=== PATIENT | male | born 1950 | race Caucasian/White ===

== ENCOUNTER 2022-03-27 19:11 | Inpatient (IN) | payer OTHER ==
[2022-03-27 19:53] LABS: #Basophils 0.1 thou/uL (0.0-0.2); #Eosinphils 0.1 thou/uL (0.0-0.7); #Lymphocytes 0.9 thou/uL (1.20-3.40); #Monocytes 0.5 thou/uL (0.11-0.59); #Neutrophils 4.1 thou/uL (1.40-6.50); %Basophils 1.5 % (0.0-1.0); %Eosinophils 1.8 % (0.0-10.0); %Lymphocytes 15.5 % (21.0-51.0); %Neutrophils 73.2 % (42.0-75.0); Hemoglobin 10.6 g/dL (14.0-18.0); Mean Corpuscular HGB CONC 30.1 g/dL (32.0-36.0); Mean Corpuscular Hemoglobin 27.2 pg (27.0-31.0); Mean Corpuscular Volume 90.5 fL (78.0-98.0); Mean Platelet Volume 6.9 fL (7.4-10.4); Platelet Count 277 thou/uL (130-400); RBC Distribution Width 13.3 % (11.5-14.5); Red Blood Cell (RBC) Count 3.88 mill/uL (4.70-6.10); White Blood Cell (WBC) Count 5.6 thou/uL (4.8-10.8)
[2022-03-27 20:25] LABS: Acetaminophen Less than 10.0 mcg/mL (10.0-30.0); Alcohol 291 mg/dL (Less than 10); Salicylate Less than 8.0 mg/dL (15.0-30.0)
[2022-03-27 20:30] LABS: ALT (SGPT) 55 U/L (8-55); AST (SGOT) 77 U/L (5-34); Albumin 2.7 g/dL (3.4-4.8); Alkaline Phosphatase 75 U/L (40-110); Anion Gap 14 mmol/L (10-20); BUN (Urea Nitrogen) 15 mg/dL (8.4-25.7); Bilirubin, Total Less than 0.2 mg/dL (0.2-1.2); Calc. Creatinine Clearance 0 mL/min (70-130); Calcium 8.1 mg/dL (7.8-10.44); Carbon Dioxide 23 mmol/L (23-31); Chloride 107 mmol/L (98-107); Estimated GFR 89; Globulin 2.8 g/dL (2.4-3.5); Glucose 110 mg/dL (80-115); Potassium 4.8 mmol/L (3.5-5.1); Protein, Total 5.5 g/dL (5.8-8.1); Sodium 139 mmol/L (136-145)
[2022-03-27] MEDS ORDERED: DOPamine 400 MG/D5W 250 ML 0 ML ONE (22:39)
[2022-03-27] MEDS ORDERED: NOREPINEPHRINE 8 MG/250 ML-D5W 250 ML ONE (22:40)
[2022-03-27] MEDS ORDERED: Multivitamins, Adult 10 ML, Thiamine HCl 100 MG, Folic Acid 1 MG in Dextrose 5 %-0.45 %... IV SCH (23:30)
[2022-03-28] MEDS ORDERED: Lorazepam 1 MG TAB PO PRN
[2022-03-28] MEDS ORDERED: Ondansetron PF 4 MG/2 ML Vial IVP PRN (01:57)
[2022-03-28] MEDS ORDERED: Acetaminophen 325 MG TAB PO PRN (01:57)
[2022-03-28] MEDS ORDERED: NOREPINEPHRINE 8 MG/250 ML-D5W 250 ML IVPB SCH (02:45)
[2022-03-28] MEDS: Sodium Chloride 0.9% 1,000 ML IV SCH ×2 (03:06→17:38)
[2022-03-28 03:19] LABS: SARS-CoV-2 NAA Rapid Test Not Detected (NotDetected)
[2022-03-28 04:52] LABS: ALT (SGPT) 65 U/L (8-55); AST (SGOT) 74 U/L (5-34); Albumin 3.1 g/dL (3.4-4.8); Alkaline Phosphatase 85 U/L (40-110); Anion Gap 16 mmol/L (10-20); BUN (Urea Nitrogen) 13 mg/dL (8.4-25.7); Bilirubin, Total 0.2 mg/dL (0.2-1.2); Calc. Creatinine Clearance 97 mL/min (70-130); Calcium 8.2 mg/dL (7.8-10.44); Carbon Dioxide 21 mmol/L (23-31); Chloride 106 mmol/L (98-107); Estimated GFR 95; Glucose 116 mg/dL (80-115); Potassium 4.6 mmol/L (3.5-5.1); Protein, Total 6.1 g/dL (5.8-8.1); Sodium 138 mmol/L (136-145)
[2022-03-28 05:02] LABS: #Lymphocytes 0.7 thou/uL (1.20-3.40); #Monocytes 0.7 thou/uL (0.11-0.59); #Neutrophils 9.8 thou/uL (1.40-6.50); %Basophils 0.3 % (0.0-1.0); %Eosinophils 0.2 % (0.0-10.0); %Lymphocytes 6.5 % (21.0-51.0); %Monocytes 6.1 % (0.0-10.0); Hemoglobin 11.2 g/dL (14.0-18.0); Mean Corpuscular HGB CONC 30.1 g/dL (32.0-36.0); Mean Corpuscular Hemoglobin 27.7 pg (27.0-31.0); Mean Platelet Volume 7.3 fL (7.4-10.4); Platelet Count 317 thou/uL (130-400); RBC Distribution Width 13.2 % (11.5-14.5); Red Blood Cell (RBC) Count 4.06 mill/uL (4.70-6.10); White Blood Cell (WBC) Count 11.3 thou/uL (4.8-10.8)
[2022-03-28] MEDS ORDERED: Phentolamine Mesylate 5 MG VIAL SC SCH (07:00)
[2022-03-28] MEDS: Enoxaparin Sodium 40 MG/0.4 ML SYRINGE SC SCH (07:37)
[2022-03-28] MEDS: Multivitamin W/ Minerals 1 TAB PO SCH (07:38)
[2022-03-28] MEDS: Thiamine 100 MG TAB PO SCH (07:38)
[2022-03-28] MEDS: Famotidine 20 MG TAB PO SCH ×2 (07:38→19:49)
[2022-03-28] MEDS: Folic Acid 1 MG TAB PO SCH ×3 (07:38→09:24)
[2022-03-28] MEDS: Thiamine HCl 200 MG/2 ML VIAL SLOW IVP SCH (07:40)
[2022-03-28] MEDS ORDERED: Lorazepam 2 MG/ML VIAL IM PRN (08:00)
[2022-03-28] MEDS ORDERED: Ondansetron ODT 4 MG TAB PO PRN (08:00)
[2022-03-28] MEDS ORDERED: Electrolyte Replacement Protocol 1 EACH FS PRN (08:00)
[2022-03-28] MEDS: Lorazepam 1 MG TAB PO SCH ×4 (08:40→23:34)
[2022-03-28] MEDS: Multivit, Therapeutic 1 TAB PO SCH (08:40)
[2022-03-28] MEDS: Midazolam HCl 2 mg/2 ml Vial IVP PRN ×2 (19:12→23:41)
[2022-03-29] MEDS: Midazolam HCl 2 mg/2 ml Vial IVP PRN ×3 (04:35→21:03)
[2022-03-29] MEDS: Lorazepam 1 MG TAB PO SCH ×2 (05:43→10:47)
[2022-03-29] MEDS ORDERED: Dexmedetomidine In 0.9 % NaCl 100 ML IVPB SCH (06:00)
[2022-03-29] MEDS: Sodium Chloride 0.9% 1,000 ML IV SCH ×2 (06:29→20:55)
[2022-03-29 06:55] LABS: #Eosinphils 0.1 thou/uL (0.0-0.7); #Lymphocytes 0.9 thou/uL (1.20-3.40); #Monocytes 1.1 thou/uL (0.11-0.59); #Neutrophils 9.7 thou/uL (1.40-6.50); %Basophils 0.2 % (0.0-1.0); %Eosinophils 0.5 % (0.0-10.0); %Lymphocytes 7.7 % (21.0-51.0); %Monocytes 9.3 % (0.0-10.0); %Neutrophils 82.4 % (42.0-75.0); Hemoglobin 11.3 g/dL (14.0-18.0); Mean Corpuscular HGB CONC 31.5 g/dL (32.0-36.0); Mean Corpuscular Hemoglobin 28.5 pg (27.0-31.0); Mean Corpuscular Volume 90.3 fL (78.0-98.0); Mean Platelet Volume 7.4 fL (7.4-10.4); Platelet Count 272 thou/uL (130-400); RBC Distribution Width 13.4 % (11.5-14.5); Red Blood Cell (RBC) Count 3.97 mill/uL (4.70-6.10); White Blood Cell (WBC) Count 11.7 thou/uL (4.8-10.8)
[2022-03-29 07:19] LABS: ALT (SGPT) 56 U/L (8-55); AST (SGOT) 53 U/L (5-34); Albumin 3.6 g/dL (3.4-4.8); Alkaline Phosphatase 96 U/L (40-110); Anion Gap 15 mmol/L (10-20); BUN (Urea Nitrogen) 13 mg/dL (8.4-25.7); Bilirubin, Total 0.5 mg/dL (0.2-1.2); Calc. Creatinine Clearance 95 mL/min (70-130); Calcium 8.2 mg/dL (7.8-10.44); Carbon Dioxide 22 mmol/L (23-31); Chloride 102 mmol/L (98-107); Estimated GFR 95; Globulin 3.2 g/dL (2.4-3.5); Glucose 90 mg/dL (80-115); Magnesium 1.6 mg/dL (1.6-2.6); Potassium 3.8 mmol/L (3.5-5.1); Protein, Total 6.8 g/dL (5.8-8.1); Sodium 135 mmol/L (136-145)
[2022-03-29] MEDS ORDERED: Lorazepam 1 MG TAB PO PRN (08:00)
[2022-03-29] MEDS: Folic Acid 1 MG TAB PO SCH (09:52)
[2022-03-29] MEDS: Multivitamin W/ Minerals 1 TAB PO SCH (09:52)
[2022-03-29] MEDS: Thiamine 100 MG TAB PO SCH (09:53)
[2022-03-29] MEDS: Enoxaparin Sodium 40 MG/0.4 ML SYRINGE SC SCH (09:53)
[2022-03-29] MEDS: Multivit, Therapeutic 1 TAB PO SCH (09:53)
[2022-03-29] MEDS: Famotidine 20 MG TAB PO SCH ×2 (09:53→21:17)
[2022-03-29] MEDS: Thiamine HCl 200 MG/2 ML VIAL SLOW IVP SCH (10:47)
[2022-03-29] MEDS ORDERED: BEER 1 CAN PO SCH (13:00)
[2022-03-29] MEDS ORDERED: Magnesium 2 GM/50 ML(in water) 2 GM in Premix Bag 1 BAG IVPB SCH (14:15)
[2022-03-29] MEDS: Lorazepam 2 MG/ML VIAL SLOW IVP PRN ×2 (14:57→21:57)
[2022-03-29] MEDS ORDERED: chlordiazePOXIDE HCl 25 MG CAP PO SCH (15:00)
[2022-03-29] MEDS: chlordiazePOXIDE HCl 25 MG CAP PO SCH ×2 (17:46→21:17)
[2022-03-29] MEDS: BEER 1 CAN PO SCH (17:47)
[2022-03-29] MEDS: Metoprolol Tartrate 5 MG/5 ML VIAL IVP SCH (20:55)
[2022-03-30] MEDS: Midazolam HCl 2 mg/2 ml Vial IVP PRN ×4 (01:59→18:58)
[2022-03-30] MEDS: Lorazepam 2 MG/ML VIAL SLOW IVP PRN ×4 (03:23→22:13)
[2022-03-30 04:07] LABS: ALT (SGPT) 60 U/L (8-55); AST (SGOT) 73 U/L (5-34); Albumin 3.2 g/dL (3.4-4.8); Alkaline Phosphatase 89 U/L (40-110); Anion Gap 14 mmol/L (10-20); BUN (Urea Nitrogen) 16 mg/dL (8.4-25.7); Bilirubin, Total 0.6 mg/dL (0.2-1.2); Calc. Creatinine Clearance 95 mL/min (70-130); Calcium 8.1 mg/dL (7.8-10.44); Carbon Dioxide 22 mmol/L (23-31); Chloride 105 mmol/L (98-107); Estimated GFR 95; Globulin 3.2 g/dL (2.4-3.5); Glucose 64 mg/dL (80-115); Magnesium 2.3 mg/dL (1.6-2.6); Potassium 5.1 mmol/L (3.5-5.1); Protein, Total 6.4 g/dL (5.8-8.1); Sodium 136 mmol/L (136-145)
[2022-03-30] MEDS ORDERED: Lorazepam 0.5 MG TAB PO SCH (06:00)
[2022-03-30] MEDS ORDERED: Lorazepam 1 MG TAB PO PRN (08:00)
[2022-03-30] MEDS: chlordiazePOXIDE HCl 25 MG CAP PO SCH ×3 (09:57→20:32)
[2022-03-30] MEDS: Famotidine 20 MG TAB PO SCH ×2 (09:57→20:32)
[2022-03-30] MEDS: BEER 1 CAN PO SCH ×3 (09:57→17:29)
[2022-03-30] MEDS: Multivit, Therapeutic 1 TAB PO SCH (09:58)
[2022-03-30] MEDS: Folic Acid 1 MG TAB PO SCH (09:58)
[2022-03-30] MEDS: Sodium Chloride 0.9% 1,000 ML IV SCH ×2 (10:06→21:34)
[2022-03-30] MEDS: Metoprolol Tartrate 5 MG/5 ML VIAL IVP SCH ×2 (10:07→20:32)
[2022-03-30] MEDS: Enoxaparin Sodium 40 MG/0.4 ML SYRINGE SC SCH (10:09)
[2022-03-30] MEDS: Thiamine HCl 200 MG/2 ML VIAL SLOW IVP SCH (10:19)
[2022-03-30] MEDS ORDERED: Thiamine HCl 200 MG/2 ML VIAL SLOW IVP SCH (11:00)
[2022-03-31 04:25] LABS: #Eosinphils 0.2 thou/uL (0.0-0.7); #Lymphocytes 0.8 thou/uL (1.20-3.40); #Monocytes 1.1 thou/uL (0.11-0.59); %Basophils 0.4 % (0.0-1.0); %Eosinophils 2.6 % (0.0-10.0); %Lymphocytes 8.9 % (21.0-51.0); %Monocytes 11.7 % (0.0-10.0); %Neutrophils 76.5 % (42.0-75.0); Hemoglobin 10.9 g/dL (14.0-18.0); Mean Corpuscular HGB CONC 30.2 g/dL (32.0-36.0); Mean Corpuscular Hemoglobin 27.9 pg (27.0-31.0); Mean Corpuscular Volume 92.2 fL (78.0-98.0); Mean Platelet Volume 7.7 fL (7.4-10.4); Platelet Count 199 thou/uL (130-400); RBC Distribution Width 13.8 % (11.5-14.5); Red Blood Cell (RBC) Count 3.91 mill/uL (4.70-6.10); White Blood Cell (WBC) Count 9.1 thou/uL (4.8-10.8)
[2022-03-31 04:53] LABS: ALT (SGPT) 50 U/L (8-55); AST (SGOT) 49 U/L (5-34); Albumin 2.9 g/dL (3.4-4.8); Alkaline Phosphatase 76 U/L (40-110); Anion Gap 13 mmol/L (10-20); BUN (Urea Nitrogen) 19 mg/dL (8.4-25.7); Bilirubin, Total 0.4 mg/dL (0.2-1.2); Calc. Creatinine Clearance 104 mL/min (70-130); Calcium 7.6 mg/dL (7.8-10.44); Carbon Dioxide 22 mmol/L (23-31); Chloride 107 mmol/L (98-107); Estimated GFR 97; Globulin 2.8 g/dL (2.4-3.5); Glucose 77 mg/dL (80-115); Magnesium 2.3 mg/dL (1.6-2.6); Potassium 4.1 mmol/L (3.5-5.1); Protein, Total 5.7 g/dL (5.8-8.1); Sodium 138 mmol/L (136-145)
[2022-03-31] MEDS ORDERED: Lorazepam 0.5 MG TAB PO PRN (06:00)
[2022-03-31] MEDS: BEER 1 CAN PO SCH ×3 (09:48→15:59)
[2022-03-31] MEDS: chlordiazePOXIDE HCl 25 MG CAP PO SCH ×3 (09:49→20:30)
[2022-03-31] MEDS: Enoxaparin Sodium 40 MG/0.4 ML SYRINGE SC SCH (09:49)
[2022-03-31] MEDS: Multivit, Therapeutic 1 TAB PO SCH (09:49)
[2022-03-31] MEDS: Metoprolol Tartrate 5 MG/5 ML VIAL IVP SCH (09:49)
[2022-03-31] MEDS: Famotidine 20 MG TAB PO SCH ×2 (09:49→20:30)
[2022-03-31] MEDS: Folic Acid 1 MG TAB PO SCH (09:49)
[2022-03-31] MEDS: Thiamine 100 MG TAB PO SCH (09:49)
[2022-03-31] MEDS: Sodium Chloride 0.9% 1,000 ML IV SCH (12:24)
[2022-03-31] MEDS: Amlodipine 10 MG TAB PO SCH (15:57)
[2022-03-31] MEDS: Metoprolol Tartrate 25 MG TAB PO SCH (20:30)
[2022-04-01 03:59] LABS: #Eosinphils 0.1 thou/uL (0.0-0.7); #Lymphocytes 0.6 thou/uL (1.20-3.40); #Monocytes 0.9 thou/uL (0.11-0.59); #Neutrophils 6.4 thou/uL (1.40-6.50); %Basophils 0.2 % (0.0-1.0); %Eosinophils 1.1 % (0.0-10.0); %Lymphocytes 7.2 % (21.0-51.0); %Monocytes 10.9 % (0.0-10.0); %Neutrophils 80.6 % (42.0-75.0); Hemoglobin 11.2 g/dL (14.0-18.0); Mean Corpuscular HGB CONC 30.1 g/dL (32.0-36.0); Mean Corpuscular Hemoglobin 27.7 pg (27.0-31.0); Mean Corpuscular Volume 91.8 fL (78.0-98.0); Mean Platelet Volume 7.2 fL (7.4-10.4); Platelet Count 212 thou/uL (130-400); RBC Distribution Width 13.7 % (11.5-14.5); Red Blood Cell (RBC) Count 4.04 mill/uL (4.70-6.10)
[2022-04-01 04:25] LABS: ALT (SGPT) 45 U/L (8-55); AST (SGOT) 40 U/L (5-34); Alkaline Phosphatase 74 U/L (40-110); Anion Gap 14 mmol/L (10-20); BUN (Urea Nitrogen) 10 mg/dL (8.4-25.7); Bilirubin, Total 0.4 mg/dL (0.2-1.2); Calc. Creatinine Clearance 119 mL/min (70-130); Calcium 8.1 mg/dL (7.8-10.44); Carbon Dioxide 24 mmol/L (23-31); Chloride 105 mmol/L (98-107); Estimated GFR 101; Globulin 2.9 g/dL (2.4-3.5); Glucose 78 mg/dL (80-115); Magnesium 2.1 mg/dL (1.6-2.6); Potassium 3.6 mmol/L (3.5-5.1); Protein, Total 5.9 g/dL (5.8-8.1); Sodium 139 mmol/L (136-145)
[2022-04-01 05:07] VITALS: BMI 27.7
[2022-04-01] MEDS: BEER 1 CAN PO SCH ×4 (08:01→22:00)
[2022-04-01] MEDS: Thiamine 100 MG TAB PO SCH (08:02)
[2022-04-01] MEDS: Amlodipine 10 MG TAB PO SCH (08:02)
[2022-04-01] MEDS: Metoprolol Tartrate 25 MG TAB PO SCH ×2 (08:02→20:46)
[2022-04-01] MEDS: Multivit, Therapeutic 1 TAB PO SCH (08:02)
[2022-04-01] MEDS: Folic Acid 1 MG TAB PO SCH (08:02)
[2022-04-01] MEDS: chlordiazePOXIDE HCl 25 MG CAP PO SCH ×3 (08:02→20:46)
[2022-04-01] MEDS: Enoxaparin Sodium 40 MG/0.4 ML SYRINGE SC SCH (08:02)
[2022-04-01] MEDS: Famotidine 20 MG TAB PO SCH ×2 (08:02→20:46)
[2022-04-01] MEDS: Sodium Chloride 0.9% 1,000 ML IV SCH ×2 (08:02→08:03)
[2022-04-02] MEDS: hydrALAZINE 20 MG/ML VIAL SLOW IVP PRN ×2 (02:30→11:56)
[2022-04-02] MEDS: Sodium Chloride 0.9% 1,000 ML IV SCH (02:31)
[2022-04-02] MEDS: Folic Acid 1 MG TAB PO SCH (09:51)
[2022-04-02] MEDS: Famotidine 20 MG TAB PO SCH (09:51)
[2022-04-02] MEDS: Amlodipine 10 MG TAB PO SCH (09:51)
[2022-04-02] MEDS: Metoprolol Tartrate 25 MG TAB PO SCH (09:51)
[2022-04-02] MEDS: Multivit, Therapeutic 1 TAB PO SCH (09:51)
[2022-04-02] MEDS: Enoxaparin Sodium 40 MG/0.4 ML SYRINGE SC SCH (09:51)
[2022-04-02] MEDS: Thiamine 100 MG TAB PO SCH (09:51)
[2022-04-02] MEDS: BEER 1 CAN PO SCH ×2 (09:51→15:43)
[2022-04-02 11:31] VITALS: TEMP 97.8
[2022-04-02 12:01] VITALS: BP 172/73
== END 2022-04-02 18:50 | disposition left against medical advice (07) | DRG 894 ==
LOC: ERS 19:11 → CCU 23:04 → T4-B 03-28 11:50 → IMCU/EMU 03-29 13:11 → T4-A 04-01 22:38
PROVIDERS: ADMIT Internal Medicine; ATTEND Internal Medicine
PROC: 3E033XZ Introduction of Vasopressor into Peripheral Vein, Percutaneous Approach (ICD-10-PCS; principal; 2022-03-27)
DX: F10.121 Alcohol abuse with intoxication delirium (principal); R57.1 Hypovolemic shock; G92.8 Other toxic encephalopathy; J96.01 Acute respiratory failure with hypoxia; F10.131 Alcohol abuse with withdrawal delirium; Z20.822 Contact with and (suspected) exposure to COVID-19; Y90.7 Blood alcohol level of 200-239 mg/100 ml; D64.9 Anemia, unspecified; Z79.899 Other long term (current) drug therapy
CPT/HCPCS: 36415; 70450; 71045; 72125; 80053; 80307; 82533; 82550; 83605; 83735; 83880; 84443; 85025; 94660; 96374; 96375; J0360; J1265; J1650; J2060; J2250; J2760; J3411; J3475; J3490; J7042; J7050; U0002